=== PATIENT | male | born 1945 | race Caucasian/White ===

== ENCOUNTER 2017-02-05 10:42 | Emergency (ER) | payer MEDICARE, BC ==
[~2017-02-05 10:42] MED LIST: ASPIRIN; ASPIRIN325 MG; ELOCON15 GM TP; FISH OIL 1,2001 CAP PO; GLUCOSAMINE CHO1 TA1; GLUCOSAMINE H1500 M1 PO; IBUPROFEN400 MG PO; IBUPROFEN800 MG; IRON325 M3 PO; IRON325 MG PO; JUICE PLUS; KEFLEX500 M4 PO; L-LYSINE500 M1 PO; LOW DOSE ASPIRI81 M1 PO; LYSINE PO; MULTI VITAMIN1 EACH PO; MULTIVITAMIN1 TAB; OMEGA 31 CAP; PRAVACHOL40 MG; PRAVACHOL40 MG PO; PROBIOTIC1 EA10 PO; ROXICODONE5 M2 PO; TAMSULOSIN HCL0.4 MG PO; TYLENOL325 MG PO; TYLENOL500 MG PO
[2017-02-05] MEDS ORDERED: NEURONTIN300 M1 PO (10:52)
[2017-02-05] MEDS ORDERED: NEURONTIN100 M1 PO (10:53)
[2017-02-05 11:31] LABS: BASO % 0.2 % (0-2); EOS % 0.5 % (0-7); HGB-HEMOGLOBIN 13.9 gm/dl (13.5-17.0); MCH (MEAN CORPUSCULAR HGB) 33.2 pg (28.0-32.0); MCHC MEAN CORPUSCULAR HGB CONC 33.9 % (32.0-36.0); MCV (MEAN CELL VOLUME) 97.9 fl (82.0-96.0); MEAN PLATELET VOLUME 8.9 cmc (9.4-12.4); MONO % 8.1 % (0-12); MONOCYTE ABSOLUTE COUNT 0.3 tho/cmm (0.0-1.2); NEUTROPHIL ABSOLUTE COUNT 2.8 tho/cmm (1.6-8.0); NEUTROPHIL-AUTOMATED 2.8 tho/cmm (1.6-8.0); NEUTROPHILS % 67.2 % (40-80); PLATELET COUNT 239 tho/cmm (150-450); RED BLOOD COUNT 4.19 mil/cmm (4.40-5.70); RED CELL DISTRIBUTION WIDTH 12.9 % (12.4-16.4); WHITE BLOOD COUNT 4.1 tho/cmm (4.0-10.0)
== END 2017-02-05 11:51 ==
LOC: EDMED 10:42
PROVIDERS: Emergency Medicine
DX: K64.8 Other hemorrhoids (principal); Z87.891 Personal history of nicotine dependence; Z98.890 Other specified postprocedural states